=== PATIENT | female | born 1975 | race Caucasian/White ===

== ENCOUNTER 2016-11-25 20:05 | Emergency (ER) | payer SELFPAY ==
[~2016-11-25] VITALS: Wt 78.5 kg
[~2016-11-25 20:05] MED LIST: INSU100C5 SQ; INSU100V14 SC
--- NOTE | 2016-11-25 22:05 | ERD ---
ER Documentation Chief Complaint Date/Time DATE: 11/25/16 TIME: 22:04 Chief Complaint AP x2 weeks. Epigastric pain radiating to the Right side HPI 41-year-old female, history of prior cholecystectomy presents with epigastric abdominal pain for 2 weeks that radiates her right upper quadrant. She describes as moderate to severe, intermittent, improving with ibuprofen. She states that the pain is not improving therefore presents here. She has not had any chest pain, shortness of breath. She denies dark or tarry stools. ROS All systems reviewed and are negative except as per history of present illness. Medications Home Meds Active Scripts Hydrocodone/Acetaminophen (Butler 5-325 Tablet) 1 Each Tablet, 1 TAB PO Q6H Y for PAIN, #7 TAB Prov:BROOKE KC PA-C 11/25/16 Ranitidine Hcl* (Zantac*) 150 Mg Tablet, 150 MG PO BID Y for EPIGASTRIC PAIN, # 30 TAB Prov:BROOKE KC PA-C 11/25/16 Reported Medications Insulin Regular, Human (Humulin R) 100 Units/Ml Vial, 0 SC 07/02/12 Insulin Glargine,Hum.rec.anlog (Lantus) 100 U/Ml Cartridge, 0 SQ HS 07/02/12 Allergies Allergies: Coded Allergies: No Known Allergy (Unverified , 07/02/12) PMhx/Soc History of Surgery: No Anesthesia Reaction: No Hx Neurological Disorder: No Hx Respiratory Disorders: No Hx Cardiac Disorders: No Hx Psychiatric Problems: No Hx Miscellaneous Medical Probl: No (DM) Hx Alcohol Use: No Hx Substance Use: No Hx Tobacco Use: No Smoking Status: Never smoker Physical Exam Vitals Vital Signs Date Time Temp Pulse Resp B/P Pulse Ox O2 Delivery O2 Flow Rate FiO2 11/25/16 20:32 99.4 97 20 120/63 100 Physical Exam General: Well-developed, well-nourished. The patient appears in no acute distress. HEENT: Head is normocephalic, atraumatic. No scleral icterus. Pupils are equal , round, and reactive. Oral mucous membranes are moist. No pharyngeal erythema. Neck: Supple. Nontender. Lungs: Clear to auscultation. Normal air movement. Heart: Regular rate and rhythm. S1 and S2 are normal. No murmurs, gallops, or rubs. Abdomen: Soft, tender to palpation epigastric region right upper quadrant, nondistended. Bowel sounds are normoactive. Evidence of scars from prior lap sita Extremities: No clubbing or cyanosis. Normal pulses. Moving extremities x 4. No weakness. Neurologic: Alert and oriented 3. No focal deficits. Skin: Normal turgor. No rash or lesions. Result Diagram: 11/25/16 2304 11/25/16 2304 Results 24 hrs Laboratory Tests Test 11/25/16 23:04 11/26/16 01:01 11/26/16 01:45 White Blood Count 8.110^3/ul Red Blood Count 4.4510^6/ul Hemoglobin 13.3g/dl Hematocrit 38.6% Mean Corpuscular Volume 86.7fl Mean Corpuscular Hemoglobin 29.9pg Mean Corpuscular Hemoglobin Concent 34.5g/dl Red Cell Distribution Width 12.0% Platelet Count 45752^3/UL Mean Platelet Volume 11.9fl Neutrophils % 57.9% Lymphocytes % 30.4% Monocytes % 7.1% Eosinophils % 3.2% Basophils % 0.9% Nucleated Red Blood Cells % 0.0/100WBC Neutrophils # (Manual) 4.710^3/ul Lymphocytes # 2.510^3/ul Monocytes # 0.610^3/ul Eosinophils # 0.310^3/ul Basophils # 0.110^3/ul Nucleated Red Blood Cells # 0.010^3/ul Urine Color STRAW Urine Clarity SLIGHTLY CLOUDY Urine pH 6.0 Urine Specific [place] 1.030 Urine Ketones NEGATIVEmg/dL Urine Nitrite NEGATIVEmg/dL Urine Bilirubin NEGATIVEmg/dL Urine Urobilinogen NEGATIVEmg/dL Urine Leukocyte Esterase NEGATIVELeu/ul Urine Microscopic RBC 4/HPF Urine Microscopic WBC 12/HPF Urine Squamous Epithelial Cells FEW/HPF Urine Yeast (Budding) FEW/HPF Urine Hemoglobin 1+mg/dL Urine Glucose 3+mg/dL Urine Total Protein NEGATIVEmg/dl Sodium Level 131mmol/L Potassium Level 3.9mmol/L Chloride Level 96mmol/L Carbon Dioxide Level 26mmol/L Anion Gap 13 Blood Urea Nitrogen 16mg/dl Creatinine 0.69mg/dl Glucose Level 429mg/dl Calcium Level 9.4mg/dl Total Bilirubin 0.2mg/dl Direct Bilirubin 0.00mg/dl Indirect Bilirubin 0.2mg/dl Aspartate Amino Transf (AST/SGOT) 16IU/L Alanine Aminotransferase (ALT/SGPT) 25IU/L Alkaline Phosphatase 121IU/L Total Protein 7.7g/dl Albumin 4.2g/dl Globulin 3.50g/dl Albumin/Globulin Ratio 1.20 Lipase 121U/L Bedside Glucose 354mg/dL 253mg/dL Current Medications Medications (Trade) Dose Ordered Sig/Rizwana Route PRN Reason Start Time Stop Time Status Last Admin Dose Admin Miscellaneous Medication (Gi Cocktail (2)) 40 ml ONCE ONCE PO 11/25/16 22:30 11/25/16 22:31 DC Acetaminophen/ Hydrocodone Bitart 1 tab 1 tab ONCE ONCE PO 11/25/16 22:30 11/25/16 22:31 DC 11/25/16 23:07 Sodium Chloride (NS) 1,000 ml @ 1,000 mls/hr Q1H ONCE IV 11/26/16 00:00 11/26/16 00:59 DC 11/25/16 23:56 Insulin Human Lispro (Humalog) 8 unit ONCE STAT SC 11/25/16 23:49 11/25/16 23:51 DC 11/26/16 01:03 DIAGNOSTIC IMAGING REPORT Patient: GABRIEL LORENZ : 1975 Age: 41 Sex: F MR #: [id number] DOS: 11/25/162200 Ordering MD: BROOKE KC PA-C Location: [facility] Room/Bed: PROCEDURE: Right upper quadrant abdominal ultrasound. CLINICAL INDICATION: Abdominal pain TECHNIQUE: Altamirano scale and color doppler ultrasound images of the right upper quadrant of the abdomen. COMPARISON: None FINDINGS: Pancreas: Not visualized by the inbound customer service representative. Liver: Morphology: The right lobe of the liver is elongated measuring up to 19.1 cm which may reflect Joanna's lobe configuration. No evidence of contour nodularity. Contour:Normal, no evidence of nodularity. Echogenicity: Increased. Focal lesions:None. Main portal vein: Patent with hepatopetal flow. Biliary System: Gallbladder wall: Surgically absent Gallstones: None. Intrahepatic bile ducts: Normal caliber. Common bile duct diameter (mm): 9.9 Kidneys: Right length (cm) : 10.0 Right cortical thickness: Normal. Echogenicity: Normal. Hydronephrosis: None. Renal calculi: None. Focal lesions: None. Free fluid/ascites: None. Abdominal aorta: Not visualized by the inbound customer service representative. Other findings: None. IMPRESSION: Status post cholecystectomy. Normal caliber intrahepatic biliary system. Dilatation of the common bile duct is likely postoperative; if clinical suspicion for choledocholithiasis suggest MRI with MRCP of the abdomen for further evaluation. Increased echogenicity of the liver parenchyma suggestive of hepatic steatosis. RPTAT: AADD .Mikel Galloway MD, MD Date Time Electronically viewed and signed by .Mikel Galloway MD, MD on 11/25/2016 22:53 .B/ Procedures/MDM ED course: She was given a GI cocktail as well as Butler for pain. Labs and urine as well as an abdominal ultrasound were obtained. Medical decision makin-year-old female presents with epigastric abdominal pain going to her right upper quadrant for 2 weeks, she has a history of cholecystectomy. Patient was given a GI cocktail Butler, she states her pain is improved. She is here with epigastric abdominal pain that goes to the right upper quadrant, abdominal ultrasound shows status post cholecystectomy, she has larger than normal common bile duct that is likely consistent with postoperative changes. She does not have any laboratory examinations to consider choledocholithiasis, and her AST and ALT as well as her lipase are all within normal limits. She is no white blood cell count without any fever, I doubt acute cholangitis. Patient's symptoms are most consistent with gastritis versus GERD. She also comes in with an elevated blood glucose in the 450s which was treated with fluids as well as Humalog. Her repeat Accu-Chek was 253. She does not have any ketonuria, no acidosis to indicate diabetic ketoacidosis. Sodium on the blood work shows that it was 131, corrected with hyperglycemia is 136. Patient was given fluids, patient also reports that her abdominal pain is much improved, she does not have any clinical signs of an acute surgical abdominal process and stable for outpatient management. Departure Diagnosis: Primary Impression: Diabetes type 2, uncontrolled Additional Impression: Abdominal pain Condition: Good BROOKE KC PA-C Nov 25, 2016 22:05
[2016-11-25] MEDS ORDERED: HYDROCODONE/APAP (5/325) TAB PO ONE (22:30)
[2016-11-25] MEDS ORDERED: LIDOCAINE/MYLANTA 40 ML BTL PO ONE (22:30)
--- NOTE | 2016-11-25 22:54 | RADRPT ---
PROCEDURE: Right upper quadrant abdominal ultrasound. CLINICAL INDICATION: Abdominal pain TECHNIQUE: Altamirano scale and color doppler ultrasound images of the right upper quadrant of the abdom en. COMPARISON: None FINDINGS: Pancreas: Not visualized by the account collector. Liver: Morphology: The right lobe of the liver is elongated measuring up to 19.1 cm which may reflect Riede l's lobe configuration. No evidence of contour nodularity. Contour:Normal, no evidence of nodularity. Echogenicity: Increased. Focal lesions:None. Main portal vein: Patent with hepatopetal flow. Biliary System: Gallbladder wall: Surgically absent Gallstones: None. Intrahepatic bile ducts: Normal caliber. Common bile duct diameter (mm): 9.9 Kidneys: Right length (cm) : 10.0 Right cortical thickness: Normal. Echogenicity: Normal. Hydronephrosis: None. Renal calculi: None. Focal lesions: None. Free fluid/ascites: None. Abdominal aorta: Not visualized by the account collector. Other findings: None. IMPRESSION: Status post cholecystectomy. Normal caliber intrahepatic biliary system. Dilatation of the common bile duct is likely postoperative; if clinical suspicion for choledocholith iasis suggest MRI with MRCP of the abdomen for further evaluation. Increased echogenicity of the liver parenchyma suggestive of hepatic steatosis. RPTAT: AADD .Mikel Galloway MD, Date Time Electronically viewed and signed by .Mikel Galloway MD, on 11/25/2016 22:53 .B/
[2016-11-25 23:14] LABS: BASOPHIL # 0.1 10^3/ul (0.0-0.1); BASOPHILS % 0.9 % (0.0-2.0); EOSINOPHILS # 0.3 10^3/ul (0.0-0.5); EOSINOPHILS % 3.2 % (0.0-7.0); HEMATOCRIT 38.6 % (37.0-47.0); HEMOGLOBIN 13.3 g/dl (12.0-16.0); LYMPHOCYTES # 2.5 10^3/ul (0.8-2.9); LYMPHOCYTES % 30.4 % (15.0-51.0); MEAN CORPUSCULAR HEMOGLOBIN 29.9 pg (29.0-33.0); MEAN CORPUSCULAR HGB CONC 34.5 g/dl (32.0-37.0); MEAN CORPUSCULAR VOLUME 86.7 fl (82.0-101.0); MEAN PLATELET VOLUME 11.9 fl (7.4-10.4); MONOCYTE # 0.6 10^3/ul (0.3-0.9); MONOCYTES % 7.1 % (0.0-11.0); NEUTROPHILS % 57.9 % (39.0-77.0); PLATELET COUNT 306 10^3/UL (140-415); RED BLOOD COUNT 4.45 10^6/ul (4.20-5.40); WHITE BLOOD COUNT 8.1 10^3/ul (4.8-10.8)
[2016-11-25 23:20] LABS: ADD UMIC YES; UR ASCORBIC ACID NEGATIVE (NEGATIVE); UR BILIRUBIN (Dip) NEGATIVE (NEGATIVE); UR BLOOD (Dip) 1+ mg/dL (NEGATIVE); UR BUDDING YEAST FEW /HPF (NONE SEEN); UR CLARITY SLIGHTLY CLOUDY (CLEAR); UR COLOR STRAW (YELLOW); UR GLUCOSE (Dip) 3+ mg/dL (NEGATIVE); UR KETONES (Dip) NEGATIVE (NEGATIVE); UR LEUKOCYTE ESTERASE (Dip) NEGATIVE Leu/ul (NEGATIVE); UR NITRITE (Dip) NEGATIVE (NEGATIVE); UR RBC 4 /HPF (0-5); UR SQUAMOUS EPITHELIAL CELL FEW /HPF (FEW); UR TOTAL PROTEIN (Dip) NEGATIVE (NEGATIVE); UR UROBILINOGEN (Dip) NEGATIVE (NEGATIVE)
[2016-11-25 23:34] LABS: ALBUMIN 4.2 g/dl (3.3-4.9); ALBUMIN/GLOBULIN RATIO 1.2; BILIRUBIN,INDIRECT 0.2 mg/dl (0-1.1); BILIRUBIN,TOTAL 0.2 mg/dl (0.2-1.3); CALCIUM 9.4 mg/dl (8.4-10.2); CREATININE 0.69 mg/dl (0.44-1.00); POTASSIUM 3.9 mmol/L (3.5-5.1); TOTAL PROTEIN 7.7 g/dl (6.1-8.1)
[2016-11-25] MEDS ORDERED: HYDR-906 PO (23:48)
[2016-11-25] MEDS ORDERED: RANI150T9 PO (23:48)
[2016-11-25] MEDS ORDERED: INSULIN LISPRO 100 UNIT/ML VIAL SC STA (23:49)
[2016-11-26] MEDS ORDERED: SOD CHLORIDE 0.9% 1,000 ML IV ONE
[2016-11-26 01:57] VITALS: BP 131/86; PULSE 66; RESP 16; TEMP 97.5
== END 2016-11-26 02:00 | disposition home or self-care (01) ==
LOC: FTE 20:05
DX: E11.9 Type 2 diabetes mellitus without complications (principal); Z79.4 Long term (current) use of insulin
CPT/HCPCS: 36415; 76705; 80053; 81001; 82962; 83690; 85025; 96372; 99285; J1815; J7030